=== PATIENT | female | born 1965 | race Caucasian/White ===

== ENCOUNTER → 2024-10-24 09:15 | Outpatient (REF) | payer OTHER, SELFPAY | LOC: HWWDC 09:15 | PROVIDERS: ATTENDING PHYSICIAN Obstetrics & Gynecology | DX: Z12.31 Encounter for screening mammogram for malignant neoplasm of breast (principal) | CPT/HCPCS: 77063; 77067 ==

== ENCOUNTER → 2024-11-07 11:04 | Outpatient (REF) | payer OTHER, SELFPAY | LOC: WDC 11:04 | PROVIDERS: ATTENDING PHYSICIAN Obstetrics & Gynecology | DX: R92.2 Inconclusive mammogram (principal) | CPT/HCPCS: 76641 ==

== ENCOUNTER 2025-02-20 11:19 | Emergency (ER) | payer OTHER, SELFPAY ==
[2025-02-20 11:30] VITALS: BP 133/91
[2025-02-20] MEDS: TYLENOL 1000 MG PO (12:23)
[2025-02-20] MEDS: NSS 1000 IV (12:34)
--- NOTE | 2025-02-20 12:43 | ED.GENMED ---
History of Present Illness
General
Chief Complaint: Fever
Source: patient
Time Seen by Provider: 02/20/25 11:39
History of Present Illness
History of Present Illness:
60-year-old female with no significant past medical history presenting to the emergency department for evaluation after she has had a mostly constant fever since Thursday with Tmax around 104, cough, body aches, headache, nausea, sinus congestion and
generally feeling unwell. Patient states she has been taking Motrin [id number] with last dose around 6 AM. No known sick contacts, recent travel or recent antibiotics. No other concerns presently.
Past History
Past History
ED Past Medical History: None
ED Past Surgical History: None
Social History
Tobacco: Non-smoker
Alcohol: Occasional
Drug: None
Personal:
Living: with family
Review of Systems
Review of Systems
All Other Systems: ROS reviewed and negative except as documented in HPI and ROS
Phy Exam
Physical Exam
Physical Exam:
GENERAL: Alert , in no apparent distress, Intermittent nonproductive cough during the exam
EYE: conjunctiva clear
NECK: Supple
ENT: o/p clr, mmm.
CARDIAC: Borderline tachycardic rate and rhythm
LUNGS: Clear breath sounds bilaterally, no acute respiratory distress, no wheezes/rales/rhonchi
NEUROLOGICAL: Alert and oriented
SKIN: Warm and dry, skin intact.
MUSCULOSKELETAL: well perfused.
PSYCH: Normal and appropriate interaction.
Scores
Heart Failure Risk
Heart Failure Risk Score: Not Applicable
Heart Score for Chest Pain Patients
STEMI patient?: Not applicable
Withdrawal Assessment of Alcohol
Withdrawal Assessment Completed?: Not applicable
Sepsis
Sepsis Screening
Sepsis Assessment: Sepsis Ruled Out
Sepsis Screen
Sepsis Screen: Sepsis Ruled Out
Date: 02/20/25
Time: 14:32
Course
Orders/Labs/Results
Orders:
Orders
02/20/25 11:39
Acetaminophen [Tylenol] 1,000 mg PO NOW STA
02/20/25 11:54
Acetaminophen [Tylenol] 1,000 mg .ROUTE .STK-MED ONE
02/20/25 12:04
0.9% Sodium Chloride 1000 ml [Nss] 1,000 ml IV BOLUS
02/20/25 12:33
Basic Metabolic Panel Urgent
Complete Blood Count/With Diff Urgent
Abnormal Lab Results
02/20/25
12:33
Absolute Lymphs (auto) 0.4 L 10^3/uL
(1.2-3.4)
Absolute Monos (auto) 0.8 H 10^3/uL
(0.1-0.6)
Neutrophils % 83.7 H %
(42.2-75.2)
Lymphocytes % 4.9 L %
(20.5-51.1)
Monocytes % 9.7 H %
(1.7-9.3)
BUN 6 L mg/dl
(7-17)
Creatinine 0.5 L mg/dL
(0.6-1.0)
Glucose 128 H mg/dl
(70-99)
02/20/25 12:33
02/20/25 12:33
Vital Signs
Initial and Last Documented VS:
Initial Vital Signs
Temp Pulse Resp BP Pulse Ox
99.9 F 105 20 133/91 98
02/20/25 11:30 02/20/25 11:30 02/20/25 11:30 02/20/25 11:30 02/20/25 11:30
Last Documented Vital Signs
Temp Pulse Resp BP Pulse Ox
99.6 F 105 20 133/91 98
02/20/25 13:59 02/20/25 11:30 02/20/25 11:30 02/20/25 11:30 02/20/25 11:30
MDM/Problems Addressed
Differential Diagnosis Includes:
COVID, flu, pneumonia
MDM/Problems Addressed:
60-year-old female presenting the ER for evaluation of flulike symptoms that started this past Thursday. Patient declining COVID/flu testing due to her not liking the nasal swab and causing her increased nasal irritation so she is declining this
test. Patient stating she would just like some fluids as she feels dehydrated. Will check labs. Patient does have a fever of 101.2. Tylenol ordered anticipate discharge home with continued supportive care. Suspect viral etiology is most likely
diagnosis.
*Pulse Oximetry
Patient hypoxic: no
*Critical Care Note
Total Time (30-74mins, 75-104mins- exclusive of procedures): Not Applicable
Patient Management
Escalation/DeEscalation of care consider admission/obs:
Patient labs reassuring. She does note still feeling ill. Patient reassured. Suspect viral/flu illness. Continue supportive care at home. Advised on return precautions
ED Attending Note
-
Portions of this chart may have been created with voice recognition software.� Occasional wrong word or��sound alike� substitutions may have occurred due to the inherent limitations of voice recognition software.
Discharge Plan
Departure
Patient Disposition: Home (Routine Discharge)
Date of Disposition: 02/20/25
Time of Disposition: 13:23
Patient with high blood pressure during this ER visit?: No
Discharge Problem:
Fever
Instructions: Flu in adults - Discharge instructions
Referrals:
UNKNOWN - PT DOES,NOT KNOW [Family Provider] -
Interventions
Interventions:
*Risk Screen - Suicide Last Done: 02/20/25 11:30
*General Assessment Last Done: 02/20/25 11:30
*Neglect/Abuse Screening Last Done: 02/20/25 11:30
*ED- Fall Risk Assessment Last Done: 02/20/25 12:24
*ED COVID-19 Vaccine History Last Done: 02/20/25 12:24
*Nursing Disposition Last Done: 02/20/25 13:59
ED- Neurological Assessment Last Done: 02/20/25 12:24
ED-Skin Assessment Last Done: 02/20/25 12:24
Discharge Date and Time
Discharge Date/Time: 02/20/25 14:01
Print Language: ICELANDIC
[2025-02-20 12:45] LABS: % Eosinophils 0.3 % (0-6); % Immature Granulocytes 0.4 % (0-0.5); % Lymphocytes 4.9 % (20.5-51.1); % Monocytes 9.7 % (1.7-9.3); % Neutrophils 83.7 % (42.2-75.2); Absolute Basophils 0.1 10^3/uL (0-0.2); Absolute Lymphocytes 0.4 10^3/uL (1.2-3.4); Absolute Monocytes 0.8 10^3/uL (0.1-0.6); Absolute Neutrophils 6.4 10^3/uL (1.4-6.5); Hemoglobin 14.5 g/dL (12.0-16.0); Mean Corp Hgb Conc. 34.5 g/dL (33.0-37.0); Mean Corpuscular Hgb 29.5 pg (27.0-31.0); Mean Corpuscular Volume 85.5 fL (81.0-99.0); Nucleated Red Blood Cells % 0 %; Platelet Count 142 10^3/uL (130-400); Red Blood Cell Count 4.91 10^6/uL (4.20-5.40); Red Cell Dist. Width 12.3 % (11.5-14.5); White Blood Cell Count 7.7 10^3/uL (4.8-10.8)
[2025-02-20 13:00] LABS: Blood Urea Nitrogen 6 mg/dl (7-17); Calcium 9.2 mg/dl (8.4-10.2); Carbon Dioxide 29 mmol/L (22-30); Chloride 100 mmol/L (98-107); Glucose 128 mg/dl (70-99); Potassium 4.3 mmol/L (3.5-5.1); Sodium 136 mmol/L (135-145); eGFR > 60.00
== END 2025-02-20 14:01 | disposition home or self-care (01) ==
LOC: EMR 11:19
PROVIDERS: Physician Assistant Medical; EMERGENCY PHYSICIAN Emergency Medicine
DX: R50.9 Fever, unspecified (principal); R05.9 Cough, unspecified; R51.9 Headache, unspecified; R11.0 Nausea; R09.81 Nasal congestion
CPT/HCPCS: 99284; 96360; 80048; 85025

== ENCOUNTER → 2025-05-15 12:12 | Outpatient (REF) | payer OTHER, SELFPAY | LOC: HWRAD 12:12 | PROVIDERS: ATTENDING PHYSICIAN Chiropractor | DX: M54.2 Cervicalgia (principal) | CPT/HCPCS: 72050 ==